=== PATIENT | female | born 1985 | race Caucasian/White ===

== ENCOUNTER 2017-01-23 16:41 | Emergency (ER) | payer OTHER ==
[~2017-01-23] VITALS: Ht 162.6 cm; Wt 115.5 kg
[2017-01-23 17:50] LABS: HEMATOCRIT 46.6 % (36.0-46.0); MCH 29.9 PG (29.0-34.0); MCHC 34.8 G/DL (30.0-36.0); MEAN PLAT.VOLUME 10.1 uM^3 (9.5-12.4); PLATELET COUNT 264 K/uL (156-360); RBC DIS.WIDTH-CV 12.4 % (11.8-14.6); RBC DIS.WIDTH-SD 38.3 % (39-53); RED BLOOD COUNT 5.42 M/uL (3.80-5.20); WHITE BLOOD COUNT 8.4 K/uL (4.1-10.2)
[2017-01-23 17:58] LABS: D-DIMER ELISA < 150.00 ng/mLDDU (<230)
[2017-01-23 17:59] LABS: CHLORIDE 104 mEq/L (99-109); POTASSIUM 4.7 mEq/L (3.7-5.4); SODIUM 139 mEq/L (136-147)
[2017-01-23 18:01] LABS: GLUCOSE 97 mg/dL (70-99)
[2017-01-23 18:02] LABS: ANION GAP 12 MEQ/L (2-14)
[2017-01-23 18:03] LABS: TOTAL BILIRUBIN 0.4 mg/dL (0.0-1.0)
[2017-01-23 18:05] LABS: ALKALINE PHOSPHATASE 72 IU/L (3-129); GFR ESTIMATE (CALCULATED) > 59 mL/min/
[2017-01-23 18:06] LABS: UREA NITROGEN (BUN) 12 mg/dL (9-23)
[2017-01-23 18:14] LABS: TROP-I INTERPRETATION NEGATIVE; TROPONIN-I < 0.01 ng/mL (0.0-0.30)
[2017-01-23 18:15] LABS: QUANTITATIVE HCG < 4.0 MIU/ML
[2017-01-23 18:26] LABS: ADD MIUA? NO; BILIRUBIN NEGATIVE; BLOOD NEGATIVE; COLOR YELLOW ((YELLOW)); GLUCOSE (STRIP) NEGATIVE; KETONES NEGATIVE; LEUKOCYTES NEGATIVE; NITRITE NEGATIVE; PROTEIN (STRIP) NEGATIVE; SPECIFIC GRAVITY 1.017 (1.000-1.030); UCUL ADDED? NO; UROBILINOGEN 0.2 MG/DL (0.2-1.0)
[2017-01-23 21:35] LABS: TROP-I INTERPRETATION NEGATIVE; TROPONIN-I < 0.01 ng/mL (0.0-0.30)
[2017-01-23] MEDS ORDERED: ULTRAM50 MG PO (21:42)
[2017-01-23] MEDS ORDERED: MOTRIN600 MG PO (21:42)
[2017-01-23 21:52] VITALS: BP 132/89
== END 2017-01-23 21:53 | disposition home or self-care (01) ==
LOC: EME 16:41
PROVIDERS: Nurse Practitioner Family
DX: M54.9 Dorsalgia, unspecified (principal); R07.9 Chest pain, unspecified; R06.02 Shortness of breath; E78.1 Pure hyperglyceridemia; Z86.718 Personal history of other venous thrombosis and embolism; F32.9 Major depressive disorder, single episode, unspecified; F17.200 Nicotine dependence, unspecified, uncomplicated; Z90.49 Acquired absence of other specified parts of digestive tract; Z82.49 Family history of ischemic heart disease and other diseases of the circulatory system; Z82.3 Family history of stroke
CPT/HCPCS: 71020; 80053; 81003; 84484; 84702; 85027; 85379; 93005; 99281; 99284; J1885; J2405